=== PATIENT | male | born 1975 | race Two or more races ===

== ENCOUNTER 2019-01-20 17:29 | Emergency (ER) | payer SELFPAY ==
[~2019-01-20] VITALS: Ht 167.6 cm; Wt 77.1 kg
[2019-01-20 17:32] VITALS: BP 126/72
== END 2019-01-20 23:00 | disposition left against medical advice (07) ==
LOC: ER 17:34
DX: I63.9 Cerebral infarction, unspecified (principal); Z53.21 Procedure and treatment not carried out due to patient leaving prior to being seen by health care provider
CPT/HCPCS: 93005